=== PATIENT | female | born 1980 | race Caucasian/White ===

== ENCOUNTER 2023-06-19 15:04 | Emergency (ER) | payer OTHER ==
[2023-06-19] MEDS ORDERED: OFLOXACIN 0.3% OPHTHALMIC SOLUTION 5 ML BOTTLE OU ONE (16:00)
[2023-06-19] MEDS ORDERED: ACETAMINOPHEN INJECTION 100 ML IVPB ONE (16:21)
[2023-06-19 16:40] VITALS: BP 108/64; PULSE 68; RESP 18; TEMP 98
== END 2023-06-19 16:44 | disposition home or self-care (01) ==
LOC: FER 15:04
DX: S05.11XA Contusion of eyeball and orbital tissues, right eye, initial encounter (principal); H57.11 Ocular pain, right eye; R51.9 Headache, unspecified; H57.89 Other specified disorders of eye and adnexa; W20.8XXA Other cause of strike by thrown, projected or falling object, initial encounter; Y93.89 Activity, other specified
CPT/HCPCS: 99283-25